=== PATIENT | male | born 1990 | race Two or more races ===

== ENCOUNTER 2019-01-09 08:25 | Emergency (ER) | payer MEDICAID ==
[~2019-01-09] VITALS: Ht 182.9 cm; Wt 65.8 kg
--- NOTE | 2019-01-09 08:43 | NUR ---
PT BIB SELF C/O SUDDEN ONSET ABDOMINAL PAIN RADIATES TO HIS BACK THIS MORNING, PT IS AAOX4, NOT IN RESPIRATORY DISTRESS, V/S STABLE, KEPT RESTED AND COMFORTABLE, WILL CONTINUE TO MONITOR, AWAITING ER MD FOR EVAL.
--- NOTE | 2019-01-09 08:45 | NUR ---
Gilberto de leon in [facility] - 01/09/19 at 0851 by [facility] URINE SPECIMEN COLLECTED AND SENT TO LAB.
--- NOTE | 2019-01-09 08:58 | NUR ---
AT BEDSIDE FOR EVAL.
[2019-01-09] MEDS ORDERED: LIDOCAINE 2% JEL UROJET 10 ML MM ONE (09:00)
[2019-01-09] MEDS ORDERED: MAG HYDROX/AL HYDROX/SIMETH 30 ML UDC PO ONE (09:00)
[2019-01-09] MEDS ORDERED: LIDOCAINE VISCOUS 2% UD 15 ML UDC ONE (09:04)
[2019-01-09] MEDS ORDERED: MAG HYDROX/AL HYDROX/SIMETH 30 ML UDC ONE (09:04)
[2019-01-09] MEDS ORDERED: LIDOCAINE VISCOUS 2% UD 15 ML UDC MM ONE (09:30)
--- NOTE | 2019-01-09 09:31 | NUR ---
PT IS WHEELED TO CT SCAN VIA WHEELCHAIR.
[2019-01-09 10:16] VITALS: BP 122/68
--- NOTE | 2019-01-09 10:16 | NUR ---
Patient discharged to home in stable condition. Written and verbal after care instructions given. Patient verbalizes understanding of instruction.
== END 2019-01-09 10:17 | disposition home or self-care (01) ==
LOC: ER 08:29
DX: R10.33 Periumbilical pain (principal)